=== PATIENT | female | born 1995 | race African-American/Black ===

== ENCOUNTER 2022-08-15 18:41 | Emergency (ER) | payer OTHER ==
[2022-08-15] MEDS ORDERED: Boostrix 0.5 ML (Tdap) VIAL (>/=7 yrs of age) ONE (20:45)
[2022-08-16] MEDS ORDERED: Bacitracin 1 PK ONE (01:42)
== END 2022-08-16 01:51 | disposition home or self-care (01) ==
LOC: ERS 18:41
DX: S61.121A Laceration with foreign body of right thumb with damage to nail, initial encounter (principal); W26.0XXA Contact with knife, initial encounter
CPT/HCPCS: 90471; 90715

== ENCOUNTER 2023-01-25 06:16 | Emergency (ER) | payer OTHER | END 2023-01-25 08:17 | disposition home or self-care (01) | LOC: ERS 06:16 | DX: R29.898 Other symptoms and signs involving the musculoskeletal system (principal) | CPT/HCPCS: 99284 ==

== ENCOUNTER 2023-06-06 14:07 | Outpatient (CLI) | payer OTHER | END 2023-06-06 14:08 | disposition home or self-care (01) | LOC: BICULT 14:07 | PROVIDERS: ATTEND Nurse Practitioner Women's Health | DX: Z34.92 Encounter for supervision of normal pregnancy, unspecified, second trimester (principal); Z3A.21 21 weeks gestation of pregnancy | CPT/HCPCS: 76805 ==